=== PATIENT | male | born 1970 ===

== ENCOUNTER → 2018-09-22 | Outpatient (REF) ==
--- NOTE | 2018-09-23 03:40 | REP ---
Clinical: Lumbar back pain. Technique: AP, lateral, coned-down views of the lumbosacral spine. Findings: Alignment and lordosis maintained. No acute fracture / compression injury or subluxation. Mild endplate sclerosis with minimal disc space narrowing at L4-5 is suggested. Mild hypertrophic facet changes at L4-5 and L5-S1 are also identified. Impression: Mild degenerative changes at the L4-5 and L5-S1 levels. Electronically Signed by Rome Cervantes MD 09/23/2018 03:32 A
== END ==
LOC: M SMT 13:44
PROVIDERS: ATTEND Internal Medicine
DX: M51.36 Other intervertebral disc degeneration, lumbar region (principal); M51.37 Other intervertebral disc degeneration, lumbosacral region